=== PATIENT | female | born 1985 | race African-American/Black ===

== ENCOUNTER 2016-10-10 13:10 | Emergency (ER) | payer MEDICAID | END 2016-10-10 13:55 | disposition left against medical advice (07) | LOC: D.ER 13:10 | DX: Z02.9 Encounter for administrative examinations, unspecified (principal) ==

== ENCOUNTER 2017-02-27 18:56 | Emergency (ER) | payer MEDICAID ==
[2017-02-27 20:04] LABS: BASOPHILS 0.3 % (0-2); EOSINOPHILS 1.5 % (0-7); HEMATOCRIT 38.6 % (36.0-48.0); HEMOGLOBIN 13.1 g/dL (12-16); IMMATURE GRANULOCYTES 0.1 % (0-5); LYMPHOCYTES 45.4 % (15-50); MCH 28.5 pg (26.0-34.0); MCHC 33.9 g/dL (31.0-37.0); MEAN PLATELET VOLUME 9.9 fL (7.4-10.4); MONOCYTES 5.7 % (2-11); PLATELET COUNT 301 10x3/uL (130-400); RBC 4.59 10x6/uL (4.00-5.40); RDW 13.5 % (11.5-14.5); WBC 6.7 10x3/uL (4.8-10.8)
[2017-02-27 20:05] LABS: MCV 84.1 fL (80.0-100.0)
[2017-02-27 20:20] LABS: CALC OSMOLALITY 278 mosm/kg (275-300); CALCIUM 10.2 mg/dL (8.5-10.1); CARBON DIOXIDE 26.8 mmol/L (21.0-32.0); CHLORIDE - SERUM 107 mmol/L (98-107); CREATININE - SERUM 0.9 mg/dL (0.6-1.3); GLUCOSE 79 mg/dL (74-106); POTASSIUM - SERUM 3.8 mmol/L (3.5-5.1); SODIUM 141 mmol/L (136-145); TROPONIN-I < 0.017 ng/mL (0.000-0.060); UREA NITROGEN 10 mg/dL (7-18); eGFR NON AFRICAN AMERICAN 77 mL/min (90-120)
[2017-02-27 20:59] LABS: APPEARANCE CLEAR (CLEAR); COLOR YELLOW (YELLOW)
[2017-02-27 21:00] LABS: BILIRUBIN NEGATIVE (NEGATIVE); GLUCOSE NEGATIVE (NEGATIVE); KETONE MODERATE mg/dL (NEGATIVE); NITRITE NEGATIVE (NEGATIVE); PROTEIN NEGATIVE (NEGATIVE); UROBILINOGEN NORMAL (NORMAL)
[2017-02-27 21:03] LABS: BACTERIA MANY /hpf (NONE SEEN)
[2017-02-27 22:59] LABS: HCG URINE NEGATIVE (NEGATIVE)
== END 2017-02-27 21:56 | disposition home or self-care (01) ==
LOC: D.ER 18:56
PROVIDERS: Nurse Practitioner Acute Care
DX: E86.0 Dehydration (principal)

== ENCOUNTER 2017-05-22 12:57 | Emergency (ER) | payer MEDICAID | END 2017-05-22 15:46 | disposition home or self-care (01) | LOC: D.ER 12:57 | DX: M79.604 Pain in right leg (principal) ==

== ENCOUNTER 2017-08-25 18:36 | Emergency (ER) | payer MEDICAID | END 2017-08-25 20:01 | disposition home or self-care (01) | LOC: D.ER 18:36 | DX: J01.90 Acute sinusitis, unspecified (principal); J11.1 Influenza due to unidentified influenza virus with other respiratory manifestations ==

== ENCOUNTER 2018-08-21 18:06 | Emergency (ER) | payer MEDICAID ==
[~2018-08-21] VITALS: Ht 157.5 cm; Wt 88.2 kg
[2018-08-21 18:36] VITALS: Ht 157.5 cm; Wt 88.2 kg
[2018-08-21] MEDS ORDERED: LEXAPRO20 MG PO (18:37)
[2018-08-21] MEDS ORDERED: [UNRECOGNIZED DRUG - OTHER] (18:38)
[2018-08-21] MEDS ORDERED: VOLTAREN75 MG PO (21:52)
[2018-08-21] MEDS ORDERED: OMEPRAZOLE20 M1 PO (21:52)
[2018-08-21 22:56] VITALS: BP 131/80
== END 2018-08-21 22:58 | disposition home or self-care (01) ==
LOC: D.ER 18:06
DX: R07.89 Other chest pain (principal); M79.601 Pain in right arm; Y04.2XXA Assault by strike against or bumped into by another person, initial encounter; Y93.89 Activity, other specified; Y92.89 Other specified places as the place of occurrence of the external cause

== ENCOUNTER 2019-01-28 20:14 | Emergency (ER) | payer MEDICAID ==
[~2019-01-28] VITALS: Ht 157.5 cm; Wt 88.2 kg
[~2019-01-28 20:14] MED LIST: LEXAPRO20 MG PO; OMEPRAZOLE20 M1 PO; VOLTAREN75 MG PO; [UNRECOGNIZED DRUG - OTHER]
[2019-01-28 20:56] VITALS: Ht 157.5 cm; Wt 88.2 kg
[2019-01-28 22:12] VITALS: BP 105/60
== END 2019-01-28 22:12 | disposition home or self-care (01) ==
LOC: D.ER 20:14
DX: H10.32 Unspecified acute conjunctivitis, left eye (principal)

== ENCOUNTER 2019-03-01 07:15 | Emergency (ER) | payer MEDICAID ==
[~2019-03-01] VITALS: Ht 157.5 cm; Wt 84.5 kg
[2019-03-01 07:21] VITALS: BP 123/89; Ht 157.5 cm; Wt 84.5 kg
== END 2019-03-01 08:10 | disposition home or self-care (01) ==
LOC: D.ER 07:15
DX: J06.9 Acute upper respiratory infection, unspecified (principal)

== ENCOUNTER → 2019-10-24 12:13 | Outpatient (CLI) | payer MEDICAID ==
[2019-03-01 07:21] VITALS: BMI 34.1
== END | disposition home or self-care (01) ==
LOC: D.MRI 12:13
PROVIDERS: ATTEND Clinical Nurse Specialist Family Health
DX: M25.571 Pain in right ankle and joints of right foot (principal)

== ENCOUNTER → 2019-11-21 23:36 | Outpatient (CLI) | payer MEDICAID ==
[2019-03-01 07:21] VITALS: BMI 34.1
== END | disposition home or self-care (01) ==
LOC: D.MAMMO 13:30
PROVIDERS: ATTEND Student in an Organized Health Care Education/Training Program
DX: N64.4 Mastodynia (principal)

== ENCOUNTER 2020-01-18 09:12 | Emergency (ER) | payer MEDICAID ==
[~2020-01-18] VITALS: Ht 157.5 cm; Wt 95.9 kg
[2020-01-18 09:16] VITALS: Ht 157.5 cm; Wt 95.9 kg
[2020-01-18] MEDS ORDERED: BUSPAR10 MG PO (09:20)
[2020-01-18 09:54] LABS: BASOPHILS 0.3 % (0-2); EOSINOPHILS 0.2 % (0-7); HEMATOCRIT 39.8 % (36.0-48.0); HEMOGLOBIN 13.1 g/dL (12-16); IMMATURE GRANULOCYTES 0.2 % (0-5); LYMPHOCYTES 28.5 % (15-50); MCH 28.2 pg (26.0-34.0); MCHC 32.9 g/dL (31.0-37.0); MCV 85.6 fL (80.0-100.0); MEAN PLATELET VOLUME 9.3 fL (7.4-10.4); MONOCYTES 4.6 % (2-11); NEUTROPHILS 66.2 % (40-80); PLATELET COUNT 315 10x3/uL (130-400); RBC 4.65 10x6/uL (4.00-5.40); WBC 6.5 10x3/uL (4.8-10.8)
[2020-01-18 10:11] LABS: CALC OSMOLALITY 284 mosm/kg (275-300); CALCIUM 9.9 mg/dL (8.5-10.1); CHLORIDE - SERUM 105 mmol/L (98-107); CREATININE - SERUM 0.9 mg/dL (0.6-1.3); GLUCOSE 75 mg/dL (74-106); HCG SERUM NEGATIVE (NEGATIVE); POTASSIUM - SERUM 3.6 mmol/L (3.5-5.1); SODIUM 144 mmol/L (136-145); UREA NITROGEN 10 mg/dL (7-18); eGFR NON AFRICAN AMERICAN 76 mL/min (90-120)
[2020-01-18 10:17] LABS: NITRITE NEGATIVE (NEGATIVE)
[2020-01-18 10:17] LABS: ALBUMIN 4.2 g/dL (3.4-5.0); ALKALINE PHOSPHATASE 73 U/L (30-120); ALT (SGPT) 18 U/L (10-68); BILIRUBIN - TOTAL 0.78 mg/dL (0.2-1.3); PROTEIN - SERUM 8.1 g/dL (6.4-8.2)
[2020-01-18 10:18] LABS: BACTERIA MODERATE /hpf (NONE SEEN); BILIRUBIN NEGATIVE (NEGATIVE); EPITHELIAL CELLS 0-5 /hpf (0-5); KETONE LARGE mg/dL (NEGATIVE); RED CELLS - URINE 0-5 /hpf (0-5); UROBILINOGEN 4 mg/dL (NORMAL); WHITE CELLS - URINE 0-5 /hpf (0-5)
[2020-01-18] MEDS ORDERED: FLAGYL500 MG PO (10:28)
[2020-01-18] MEDS ORDERED: HYDROCODON-ACE1 EAC7 PO (12:49)
[2020-01-18 12:55] VITALS: BP 126/88
== END 2020-01-18 13:26 | disposition home or self-care (01) ==
LOC: D.ER 09:12
PROVIDERS: Emergency Medicine
DX: N76.0 Acute vaginitis (principal); N83.201 Unspecified ovarian cyst, right side